=== PATIENT | female | born 1955 | race Caucasian/White ===

== ENCOUNTER 2020-01-02 14:39 | Emergency (ER) | payer MEDICARE, SELFPAY ==
[2020-01-02 14:49] VITALS: BP 119/66; PULSE 67; RESP 20; TEMP 36.4
--- NOTE | 2020-01-02 14:53 | ED.SKABFB ---
HPI - Skin/Abscess/Foreign Bdy General Chief complaint: Skin/Abscess/Foreign Body Stated complaint: rash Time Seen by Provider: 01/02/20 14:53 Source: patient and RN notes reviewed History of Present Illness HPI narrative: Patient is a 64-year-old female who presents the urgent care with complaints of a rash. Patient states that she noticed the rash approximately 1 week ago to both arms and legs. Patient states it is itchy and she has been using a topical paste for itch relief . Patient denies of any new creams, detergents, lotions. Denies of any known fever. No other complaints. No acute distress noted. Patient read the plan of care. Related Data Home Medications Medication Instructions Recorded Confirmed atorvastatin 10 mg PO DAILY 01/02/20 01/02/20 chlorthalidone 25 mg PO DAILY 01/02/20 01/02/20 levothyroxine 1.25 mcg PO DAILY 01/02/20 01/02/20 lisinopril 40 mg PO DAILY 01/02/20 01/02/20 potassium chloride [Klor-Con M20] 20 meq PO DAILY 01/02/20 01/02/20 Allergies Allergy/AdvReac Type Severity Reaction Status Date / Time oseltamivir Allergy Unknown VOMITING Verified 01/02/20 14:59 Sulfa (Sulfonamide Allergy Unknown RASH Verified 01/02/20 14:59 Antibiotics) Review of Systems Review of Systems: Narrative: CONSTITUTIONAL: Denies fever, chills, or sweats. EYES: Denies visual changes, redness, or discharge. ENT: Denies rhinorrhea, congestion, sore throat, or otalgia. CARDIOVASCULAR: Denies chest pain, palpitations, or edema. RESPIRATORY: Denies cough or dyspnea. GASTROINTESTINAL: Denies abdominal pain, nausea, vomiting, or diarrhea. GENITOURINARY: Denies dysuria or hematuria. SKIN: Reports of an itchy rash to bilateral arms and legs MUSCULOSKELETAL: Denies back pain, joint pain, or myalgia. NEUROLOGIC: Denies headache, numbness, or weakness. All other systems reviewed are negative, except as documented in HPI. PMFSH Comments At the time of my signature, I reviewed and agree with the nursing past medical, surgical, social, and family history. There is no relevant family history pertinent to the patient complaint. Exam Narrative: Exam Narrative: GENERAL: This is a well-nourished, well-developed patient, in no apparent distress. HEAD: normocephalic, atraumatic. EYES: PERRL. Sclera clear/white. Vision is grossly intact. EARS: External ears normal NOSE: External nose normal with no obvious nasal discharge, nares without redness, no rhinorrhea. THROAT: Mucous membranes moist NECK: Neck supple SKIN: very mild, hardly visible fine papular dermatitis, noted to bilateral lower calves and lower arms; warm, intact with no suspicious lesions, good texture and turgor. NEURO: awake, alert, and oriented to person, place and time. There were no obvious focal neurologic abnormalities. EXTREMITIES: No clubbing, cyanosis, or edema. N Course Vital Signs Vital signs: Vital Signs Temperature 97.6 F 01/02/20 14:49 Pulse Rate 67 01/02/20 14:49 Respiratory Rate 01/02/20 14:49 Blood Pressure 119/66 01/02/20 14:49 Temperature 97.6 F 01/02/20 14:49 Pulse Rate 67 01/02/20 14:49 Respiratory Rate 01/02/20 14:49 Blood Pressure 119/66 01/02/20 14:49 reviewed MDM - Skin/Abscess/Foreign Bdy MDM Narrative Medical decision making narrative: Advised the patient to take an oral antihistamine daily, such as Zyrtec and Claritin. May use Benadryl prior to bedtime if needed for itch relief. Use prescription cream as directed to affected areas avoiding groin, underarms, and face. Be aware that hot weather and hot baths/showers will exacerbate the rash. Follow-up with your PCP within 2 to 5 days if her worsening symptoms or failure to improve. Differential Diagnosis Differential diagnosis: Likely abscess of skin or subcutaneous tissue, urticaria, cellulitis, impetigo and contact dermatitis Critical Care Time Critical Care Time Critical Care Time: No Discharge Plan Discharge Clinical Impression: Contact delmy
== END 2020-01-02 15:23 | disposition home or self-care (01) ==
PROVIDERS: Emergency Provider Nurse Practitioner Family; PCP Internal Medicine
DX: L25.9 Unspecified contact dermatitis, unspecified cause (principal); E78.00 Pure hypercholesterolemia, unspecified; I10 Essential (primary) hypertension; E03.9 Hypothyroidism, unspecified
CPT/HCPCS: 99213; G0463

== ENCOUNTER 2020-02-01 16:09 | Emergency (ER) | payer MEDICARE, SELFPAY ==
[2020-02-01 16:16] VITALS: BP 138/83; PULSE 84; RESP 16; TEMP 36.6; O2SAT 98
--- NOTE | 2020-02-01 16:37 | ED.GENADULT ---
HPI - General Adult General Chief complaint: Urogenital-Female Stated complaint: FEVER/HEADACHE/CHILLS/NAUSEA/UTI SYMPTOMS Source: patient and RN notes reviewed Mode of arrival: ambulatory Limitations: no limitations History of Present Illness HPI narrative: This is a 64-year-old white female who presents today complaining of nausea, fever and headache. Patient noted that she has a history of urinary tract infection. She noted that Thursday she attempted to call her doctor to get her antibiotic for her urinary tract infection and was able to contact him it was not until yesterday that she was able to get antibiotics for her urinary tract infection. She did note that she started taking Azo on Thursday and her symptoms were relieved. Her doctor did place her on Bactrim x7 days yesterday. She took her first antibiotic pill last night in then again this morning. Patient did take her antibiotics without food and developed some nausea as a result of taking her antibiotics without food. Patient was concerned that she might have a kidney infection, I informed her that the antibiotics that she is taking will cover her kidney and urinary tract infection and that she needs to give the antibiotics times to work. The patient denies SOB, CP, palpitation, extremity numbness, lightheadedness, dizziness, constipation, or diarrhea. Patient denies being exposed to COVID-19. This patient does have a history of urinary tract infection and noted that she has had bladder repair in the past. Patient also instructed to eat before taking her antibiotics. Related Data Home Medications Medication Instructions Recorded Confirmed atorvastatin 10 mg PO DAILY 01/02/20 01/02/20 chlorthalidone 25 mg PO DAILY 01/02/20 01/02/20 levothyroxine 1.25 mcg PO DAILY 01/02/20 01/02/20 lisinopril 40 mg PO DAILY 01/02/20 01/02/20 potassium chloride [Klor-Con M20] 20 meq PO DAILY 01/02/20 01/02/20 Allergies Allergy/AdvReac Type Severity Reaction Status Date / Time oseltamivir Allergy Unknown VOMITING Verified 01/02/20 14:59 Sulfa (Sulfonamide Allergy Unknown RASH Verified 01/02/20 14:59 Antibiotics) Review of Systems Review of Systems: Narrative: CONSTITUTIONAL: Complains of fever, nausea EYES: Denies visual changes, redness, discharge. ENT: Denies rhinorrhea, congestion, sore throat, otalgia. CARDIOVASCULAR: Denies chest pain, palpitations, edema. RESPIRATORY: Denies dyspnea, wheezing, cough GASTROINTESTINAL: Denies abdominal pain, nausea, vomiting, diarrhea. GENITOURINARY: Complains of dysuria,denies Hematuria, abnormal discharge SKIN: Denies rash or itching. MUSCULOSKELETAL: Denies acute back pain, joint pain, or myalgia. NEUROLOGIC: Denies numbness, or focal weakness. PSYCHIATRIC: Denies anxiety or depression. Exam Narrative: Exam Narrative: GENERAL: This is a well-nourished, well-developed patient, in no apparent distress. HEAD: normocephalic, atraumatic. EYES: PERRL. Sclera clear/white. Vision is grossly intact. EARS: External ears normal, auditory canals clear and without drainage, TMs normal without perforation. Hearing grossly intact. NOSE: External nose normal with no obvious nasal discharge, nares without redness, no rhinorrhea. THROAT: Mucous membranes moist, posterior pharynx clear. NECK: Neck supple, non-tender without lymphadenopathy, masses or thyromegaly. CARDIOVASCULAR: Regular rate and rhythm without murmurs, gallops, or rubs. RESPIRATORY: Clear to auscultation. Breath sounds equal bilaterally. No wheezes, rales, or rhonchi. GASTROINTESTINAL: Abdomen soft, non-tender, nondistended. Bowel sounds are active. No hepato-splenomegaly, or palpable masses. No guarding. SKIN: warm, intact with no suspicious lesions or rash, good texture and turgor. NEURO: awake, alert, and oriented to person, place and time. There were no obvious focal neurologic abnormalities. Steady gait EXTREMITIES: Normal range of motion. No edema. No calf tenderness. Negative Homans sig
== END 2020-02-01 16:42 | disposition home or self-care (01) ==
PROVIDERS: Emergency Provider Nurse Practitioner; PCP Internal Medicine
DX: N39.0 Urinary tract infection, site not specified (principal)
CPT/HCPCS: 81003; 87086; 87088; 99213; G0463

== ENCOUNTER 2020-06-21 10:14 | Emergency (ER) | payer MEDICARE, SELFPAY ==
[2020-06-21 10:36] VITALS: BP 135/72; PULSE 87; RESP 16; TEMP 36.6; O2SAT 96
--- NOTE | 2020-06-21 10:39 | ED.GENADULT ---
HPI - General Adult General Chief complaint: Urogenital-Female Stated complaint: UTI SYMPTOMS/VOMITING Time Seen by Provider: 06/21/20 10:39 Source: patient and RN notes reviewed Mode of arrival: ambulatory Limitations: no limitations History of Present Illness HPI narrative: 65-year-old female presents with urinary complaints for the past 6 days. Sahra reports increase symptoms over the past 48 hours with increase po intake of water and cranberry juice, Sahra received Macrobid from primary, 2 doses, last at 21:30. Awaken at 01:30 with abdominal pain, headache (not the worst of her life), and chills, read side effects, took Tylenol (some relief for GONZÁLES), and had a banana and milk. She awaken again at 05:00 with 2 loose stools (not diarrhea) and emesis, both without blood. Dysuria consist of burning, frequency, and urgency.? Macrobid without relief. No fever. No significant pelvic pain. No vaginal discharge.? No concerns for STDs. Exacerbating factors urinating.? Denies hematuria or vaginal bleeding. Post menopausal.? No flank pain. No current nausea, vomiting, and abdominal pain.? Tolerating liquids well.? Remains active. Complains of chills, nausea, vomiting, abdominal pain, loose stool, and headache after taking Macrobid for 1 day. Sahra reports above episodes and called primary instructed to seek care at urgent care. Tylenol at 01:30 with some relief for GONZÁLES. Denies cough and chest congestion. No rhinorrhea and nasal congestion. No exacerbating factors. No fever, sweats, sore throat, loss of taste or smell. Tolerating po intake well. Denies chest pain, coughing up blood, facial pain, and rash. The patient reports she have not been diagnosed with COVID-19. The patient reports she is not waiting for the results of a COVID-19 lab test. The patient reports she do not have weakness, myalgia, or fatigue. The patient reports she do not have a worsening cough. The patient reports she do not have any diarrhea. Denies recent traveling. Denies concerns for COVID-19 or exposures been home with limited outdoor exposure except for essential household needs and return home. At this time, patient is not suspected of having COVID-19. Some parts of this dictation were generated by voice recognition software and may contain typographical and/or grammatical inaccuracies. Related Data Home Medications Medication Instructions Recorded Confirmed atorvastatin 10 mg PO DAILY 01/02/20 01/02/20 chlorthalidone 25 mg PO DAILY 01/02/20 01/02/20 levothyroxine 1.25 mcg PO DAILY 01/02/20 01/02/20 lisinopril 40 mg PO DAILY 01/02/20 01/02/20 potassium chloride [Klor-Con M20] 20 meq PO DAILY 01/02/20 01/02/20 amlodipine 06/21/20 Allergies Allergy/AdvReac Type Severity Reaction Status Date / Time oseltamivir Allergy Unknown VOMITING Verified 06/21/20 10:21 Sulfa (Sulfonamide Allergy Unknown RASH Verified 06/21/20 10:21 Antibiotics) Review of Systems Review of Systems: Narrative: CONSTITUTIONAL: Denies fever, sweats. Complains of chills-Resolved. EYES: Denies visual changes, redness, discharge. ENT: Denies rhinorrhea, congestion, sore throat, otalgia. CARDIOVASCULAR: Denies chest pain, palpitations, edema. RESPIRATORY: Denies dyspnea, wheezing, cough. GASTROINTESTINAL: Complains of abdominal pain, nausea, vomiting, loose stool-Resolved. GENITOURINARY: Complains of dysuria (burning, frequency, and urgency). Denies hematuria, abnormal discharge. SKIN: Denies rash or itching. MUSCULOSKELETAL: Denies acute back pain, joint pain, or myalgia. NEUROLOGIC: Denies numbness or focal weakness. PSYCHIATRIC: Denies anxiety or depression. Complains of headache-Resolved. All systems reviewed & are unremarkable except as noted in HPI and below. [facility] Past Medical History Medical History (Updated 06/22/20 @ 00:00 by Background Daemon) Hypercholesteremia Hypertension Hypothyroidism Ovarian cyst Postmenopausal UTI (urinary tract infection)
--- NOTE | 2020-06-21 10:45 | PC.NURSE ---
Specimens collected for flu a/b, covid rapid test and pt in [place] for urine collection.
== END 2020-06-21 11:25 | disposition home or self-care (01) ==
PROVIDERS: Emergency Provider Nurse Practitioner Family
DX: R30.0 Dysuria (principal); Z20.822 Contact with and (suspected) exposure to COVID-19; E78.00 Pure hypercholesterolemia, unspecified; I10 Essential (primary) hypertension; E89.0 Postprocedural hypothyroidism
CPT/HCPCS: 81003; 87086; 87426; 87804; 99213; C9803; G0463

== ENCOUNTER 2021-08-25 18:18 | Emergency (ER) | payer MEDICARE, SELFPAY ==
[2021-08-25 18:45] VITALS: BP 133/67; PULSE 72; RESP 20; TEMP 36.8; O2SAT 98
--- NOTE | 2021-08-25 19:21 | ED.GENADULT ---
HPI - General Adult General Chief complaint: Urogenital-Female Stated complaint: UTI Symptoms Source: patient Mode of arrival: ambulatory Limitations: no limitations History of Present Illness HPI narrative: Patient presents for evaluation of urinary symptoms for the last four days. Symptoms include frequency, urgency, hesitancy and dysuria. No fever, chills, nausea, vomiting, abdominal pain or back pain. She has a history of recurrent urinary tract infections. She does admit to wiping back to front. She states she recently learned that she should wipe front to back, and states in her younger years this did not cause any problems. She is not diabetic. She has been taking Azo which seems to help her symptoms. Related Data Home Medications Medication Instructions Recorded Confirmed atorvastatin 10 mg PO DAILY 01/02/20 01/02/20 chlorthalidone 25 mg PO DAILY 01/02/20 01/02/20 levothyroxine 1.25 mcg PO DAILY 01/02/20 01/02/20 lisinopril 40 mg PO DAILY 01/02/20 01/02/20 potassium chloride [Klor-Con M20] 20 meq PO DAILY 01/02/20 01/02/20 amlodipine 06/21/20 levothyroxine [Euthyrox] 08/25/21 Allergies Allergy/AdvReac Type Severity Reaction Status Date / Time oseltamivir Allergy Unknown VOMITING Verified 06/21/20 10:21 Sulfa (Sulfonamide Allergy Unknown RASH Verified 06/21/20 10:21 Antibiotics) nitrofurantoin Allergy Vomiting Verified 08/25/21 18:53 Review of Systems Review of Systems: CONSTITUTIONAL: Denies fever, chills, or sweats. EYES: Denies visual changes, redness, or discharge. ENT: Denies rhinorrhea, congestion, sore throat, or otalgia. CARDIOVASCULAR: Denies chest pain, palpitations, or edema. RESPIRATORY: Denies cough or dyspnea. GASTROINTESTINAL: Denies abdominal pain, nausea, vomiting, or diarrhea. GENITOURINARY: Reports urinary frequency, urgency, hesitancy and dysuria SKIN: Denies rash or itching. MUSCULOSKELETAL: Denies back pain, joint pain, or myalgia. NEUROLOGIC: Denies headache, numbness, dizziness, or weakness. PSYCHIATRIC: Denies anxiety or depression. [facility] Past Medical History Medical History Hypercholesteremia Hypertension Hypothyroidism Ovarian cyst Postmenopausal UTI (urinary tract infection) Surgical History Surgical History History of removal of cyst History of thyroidectomy History of total knee arthroplasty Left Family History Family History Father Primary parotid gland squamous cell carcinoma Mother , Mercedes reports mother related to C. 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 HEAD: Normocephalic, atraumatic. EYES: PERRLA and EOMI. ENT: Nares clear, no rhinorrhea or epistaxis. Mucous membranes moist. Oropharynx without tonsillar hypertrophy exudate or other lesions. Bilateral TMs pearly [place] nonbulging NECK: Supple. No adenopathy or masses. No carotid bruits or JVD CHEST: Clear to auscultation. No respiratory distress. No wheezes rales or rhonchi HEART: Regular rate and rhythm. No murmur heard. Normal peripheral pulses. ABDOMEN: Soft, nontender, nondistended, normal active bowel sounds. BACK: No CVA tenderness EXTREMITIES: Normal range of motion. No edema. SKIN: Warm, dry, no ra
== END 2021-08-25 19:27 | disposition home or self-care (01) ==
PROVIDERS: Emergency Provider Nurse Practitioner; PCP Internal Medicine
DX: N39.0 Urinary tract infection, site not specified (principal); E78.00 Pure hypercholesterolemia, unspecified; I10 Essential (primary) hypertension; E89.0 Postprocedural hypothyroidism; Z96.652 Presence of left artificial knee joint
CPT/HCPCS: 81003; 87086; 87088; 99213; G0463

== ENCOUNTER 2022-01-24 11:28 | Emergency (ER) | payer MEDICARE, SELFPAY ==
--- NOTE | 2022-01-24 11:31 | ED.FEMALEGU ---
HPI - Female Genitourinary General Chief complaint: Urogenital-Female Stated complaint: uti symptoms Time Seen by Provider: 01/24/22 11:31 Source: patient and RN notes reviewed History of Present Illness HPI Narrative: Patient is a 66-year-old female who presents the urgent care with complaints of burning with urination, frequency and pain. Patient states that started 2 days ago. Patient reports a hysterectomy on 06 January and was on Augmentin for 1 week. Patient states she is increased her water intake but otherwise has not used anything else [id number] for her symptoms. Denies of any fever, nausea, vomiting, vaginal bleeding or abdominal pain. No other acute complaints. No acute distress noted. Patient aware of the plan of care. Some parts of this dictation were generated by voice recognition software and may contain typographical and/or grammatical inaccuracies. Related Data Home Medications Medication Instructions Recorded Confirmed atorvastatin 10 mg tablet 10 mg PO DAILY 01/02/20 01/24/22 chlorthalidone 25 mg tablet 25 mg PO DAILY 01/02/20 01/24/22 lisinopril 40 mg tablet 40 mg PO DAILY 01/02/20 01/24/22 potassium chloride 20 mEq 20 meq PO DAILY 01/02/20 01/24/22 tablet,extended release(part/cryst) (Klor-Con M) amlodipine 2.5 mg tablet 2.5 mg PO DAILY 06/21/20 01/24/22 levothyroxine 125 mcg tablet 125 mcg PO DAILY 08/25/21 01/24/22 (Euthyrox) Allergies Allergy/AdvReac Type Severity Reaction Status Date / Time oseltamivir Allergy Unknown VOMITING Verified 01/24/22 11:38 Sulfa (Sulfonamide Allergy Unknown RASH Verified 01/24/22 11:38 Antibiotics) nitrofurantoin Allergy Vomiting Verified 01/24/22 11:38 Review of Systems Review of Systems: CONSTITUTIONAL: Denies fever, chills, or sweats. EYES: Denies visual changes, redness, or discharge. ENT: Denies rhinorrhea, congestion, sore throat, or otalgia. CARDIOVASCULAR: Denies chest pain, palpitations, or edema. RESPIRATORY: Denies cough or dyspnea. GASTROINTESTINAL: Denies abdominal pain, nausea, vomiting, or diarrhea. GENITOURINARY: Reports of dysuria, urinary frequency SKIN: Denies rash or itching. MUSCULOSKELETAL: Denies back pain, joint pain, or myalgia. NEUROLOGIC: Denies headache, numbness, or weakness. All other systems reviewed are negative, except as documented in HPI. [facility] Past Medical History Medical History Hypercholesteremia Hypertension Hypothyroidism Ovarian cyst Postmenopausal UTI (urinary tract infection) Surgical History Surgical History History of removal of cyst History of thyroidectomy History of total knee arthroplasty Left Family History Family History Father Primary parotid gland squamous cell carcinoma Mother , Mercedes reports mother related to C. 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 There is no relevant family history pertinent to the patient complaint. Exam Narrative: GENERAL: This is a well-nourished, well-developed patient, in no apparent distress. HEAD: normocephalic, atraumatic. EYES: PERRL. Sclera clear/white. Vision is grossly intact. EARS: External ears normal NOSE:
[2022-01-24 11:48] VITALS: BP 122/75; PULSE 64; RESP 16; TEMP 37.1; O2SAT 99
== END 2022-01-24 12:06 | disposition home or self-care (01) ==
PROVIDERS: Emergency Provider Nurse Practitioner Family
DX: N39.0 Urinary tract infection, site not specified (principal); E78.00 Pure hypercholesterolemia, unspecified; I10 Essential (primary) hypertension; E89.0 Postprocedural hypothyroidism
CPT/HCPCS: 81003; 87077; 87086; 87186; 99213; G0463

== ENCOUNTER 2022-06-21 10:02 | Emergency (ER) | payer MEDICARE, SELFPAY ==
[2022-06-21 10:13] VITALS: BP 122/76; PULSE 66; RESP 16; TEMP 36.7; O2SAT 98
--- NOTE | 2022-06-21 10:18 | ED.GENADULT ---
HPI - General Adult General Chief complaint: Ear Stated complaint: ear/ nose Time Seen by Provider: 06/21/22 10:18 Source: patient, RN notes reviewed and old records reviewed Mode of arrival: ambulatory Limitations: no limitations History of Present Illness HPI narrative: 67 year old female who presents to [facility] care with complaints of right ear pain which is under her ear almost in her jaw with buzzing sound noted. Patient reports that it is making her feel some dizziness.Saw her PCP and reported it to him and was dismissed. Saw cardiology for follow up and ended up with a halter monitor which is still in place due to dizziness. Saw her [employer]END[employer] for routine visit got Flagyl for BV. She is here today to get ear addressed. MD complaint: right ear pain with dizziness. Onset (ago): week(s) (1) Severity scale (1-10): 4 Treatments prior to arrival: NSAID Related Data Home Medications Medication Instructions Recorded Confirmed atorvastatin 10 mg tablet 10 mg PO DAILY 01/02/20 06/21/22 chlorthalidone 25 mg tablet 25 mg PO DAILY 01/02/20 06/21/22 lisinopril 40 mg tablet 40 mg PO DAILY 01/02/20 06/21/22 potassium chloride 20 mEq 20 meq PO DAILY 01/02/20 06/21/22 tablet,extended release(part/cryst) (Klor-Con M) amlodipine 2.5 mg tablet 2.5 mg PO DAILY 06/21/20 06/21/22 levothyroxine 112 mcg tablet 112 mcg PO DAILY 06/21/22 06/21/22 metronidazole 500 mg tablet 500 mg PO DAILY 06/21/22 06/21/22 Allergies Allergy/AdvReac Type Severity Reaction Status Date / Time oseltamivir Allergy Unknown VOMITING Verified 06/21/22 10:09 Sulfa (Sulfonamide Allergy Unknown RASH Verified 06/21/22 10:09 Antibiotics) nitrofurantoin Allergy Vomiting Verified 06/21/22 10:09 Review of Systems Review of Systems: CONSTITUTIONAL: Denies fever, chills, or sweats. EYES: Denies visual changes, redness, or discharge. ENT: Denies rhinorrhea, congestion, sore throat, positive for right otalgia and buzzing in ears CARDIOVASCULAR: Denies chest pain, palpitations, or edema. RESPIRATORY: Denies cough or dyspnea. GASTROINTESTINAL: Denies abdominal pain, nausea, vomiting, or diarrhea. GENITOURINARY: Denies dysuria or hematuria. SKIN: Denies rash or itching. MUSCULOSKELETAL: Denies back pain, joint pain, or myalgia. NEUROLOGIC: Denies headache, numbness, or weakness.reports b PSYCHIATRIC: Denies anxiety or depression. All systems reviewed & are unremarkable except as noted in HPI and below PMFSH Past Medical History Medical History Hypercholesteremia Hypertension Hypothyroidism Ovarian cyst Postmenopausal UTI (urinary tract infection) Surgical History Surgical History History of removal of cyst History of thyroidectomy History of total knee arthroplasty Left Family History Family History Father Primary parotid gland squamous cell carcinoma Mother , Mercedes reports mother related to C. 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 There is no relevant family history pertinent to the presenting complaint Exam Narrative: GENERAL: Well-appearing, well-nourished, and in no acute distress. HEAD: Normocephal
== END 2022-06-21 11:00 | disposition home or self-care (01) ==
PROVIDERS: Emergency Provider Registered Nurse
DX: H61.21 Impacted cerumen, right ear (principal); H92.01 Otalgia, right ear; M27.2 Inflammatory conditions of jaws; I10 Essential (primary) hypertension; E03.9 Hypothyroidism, unspecified
CPT/HCPCS: 69209; 99213; G0463